=== PATIENT | female | born 1970 | race Two or more races ===

== ENCOUNTER → 2017-09-16 | Outpatient (CLI) | payer OTHER | END | disposition home or self-care (01) | LOC: KCIC MRI 15:55 | DX: G45.9 Transient cerebral ischemic attack, unspecified (principal); H74.8X2 Other specified disorders of left middle ear and mastoid | CPT/HCPCS: 70551 ==

== ENCOUNTER 2017-11-28 09:35 | Emergency (ER) | payer OTHER ==
[~2017-11-28] VITALS: Ht 162.6 cm; Wt 117.9 kg
[2017-11-28 10:02] VITALS: BP 146/74
[2017-11-28] MEDS ORDERED: LISI2.5T PO (10:25)
[2017-11-28] MEDS ORDERED: CLON0.1T PO (10:25)
[2017-11-28] MEDS ORDERED: DILT30TA PO (10:25)
--- NOTE | 2017-11-28 10:47 | PHYS DOC ---
Adult General Chief Complaint Chief Complaint: PSYCH EVALUATION HPI HPI Patient is a 47 year old female who presents with Kimberly for the past 5 days. Patient has a history significant for anxiety and depression with an admission earlier this year at [facility] for the aforementioned diagnosis. Patient has been on multiple combinations of multiple psychiatric medicines including trazodone, Klonopin, Effexor, Cymbalta and Lexapro. Patient states she is now being managed by her primary care physician and his nurse practitioner and is been off all psychiatric medicines for the past 7 weeks. They're starting to slowly try, from my understanding is a single therapy to help her without overmedicating her. Patient states that she's been having trouble sleeping but does not want to take a benzodiazepine but states she's tried everything else so is here for further evaluation and management. Patient does agree to see Dr. Malik tomorrow but just wants something to help relax her today. Patient has no other acute complaints at this time. Review of Systems Review of Systems Constitutional: Denies fever or chills [] Eyes: Denies change in visual acuity, redness, or eye pain [] HENT: Denies nasal congestion or sore throat [] Respiratory: Denies cough or shortness of breath [] Cardiovascular: No additional information not addressed in HPI [] GI: Denies abdominal pain, nausea, vomiting, bloody stools or diarrhea [] : Denies dysuria or hematuria [] Musculoskeletal: Denies back pain or joint pain [] Integument: Denies rash or skin lesions [] Neurologic: Denies headache, focal weakness or sensory changes [] Endocrine: Denies polyuria or polydipsia [] All other systems were reviewed and found to be within normal limits, except as documented in this note. Current Medications Current Medications Current Medications Medications (Trade) Dose Ordered Sig/Yahir Start Time Stop Time Status Last Admin Dose Admin Lorazepam (Ativan) 1 mg 1X ONCE 11/28/17 11:45 11/28/17 11:46 DC Allergies Allergies Allergies Coded Allergies Type Severity Reaction Last Updated Verified clonazepam Adverse Reaction Intermediate 11/28/17 Yes duloxetine Adverse Reaction Intermediate Anxiety 11/28/17 Yes escitalopram Adverse Reaction Intermediate Anxiety 11/28/17 Yes mirtazapine Adverse Reaction Intermediate 11/28/17 Yes trazodone Adverse Reaction Intermediate 11/28/17 Yes venlafaxine Adverse Reaction Intermediate Nausea and Vomiting 11/28/17 Yes Physical Exam Physical Exam Constitutional: Well developed, well nourished, no acute distress, non-toxic appearance. [] HENT: Normocephalic, atraumatic, bilateral external ears normal, oropharynx moist, no oral exudates, nose normal. [] Eyes: PERRLA, EOMI, conjunctiva normal, no discharge. [] Neck: Normal range of motion, no tenderness, supple, no stridor. [] Cardiovascular:Heart rate regular rhythm, no murmur [] Lungs & Thorax: Bilateral breath sounds clear to auscultation [] Abdomen: Bowel sounds normal, soft, no tenderness, no masses, no pulsatile masses. [] Skin: Warm, dry, no erythema, no rash. [] Back: No tenderness, no CVA tenderness. [] Extremities: No tenderness, no cyanosis, no clubbing, ROM intact, no edema. [] Neurologic: Alert and oriented X 3, normal motor function, normal sensory function, no focal deficits noted. [] Psychologic: Affect normal, judgement normal, mood normal. [] Current Patient Data Vital Signs Vital Signs Date Time Temp Pulse Resp B/P (MAP) Pulse Ox O2 Delivery O2 Flow Rate FiO2 11/28/17 10:02 98.5 87 18 146/74 (98) 98 Room Air 98.5 Lab Values Laboratory Tests Test 11/28/17 11:00 11/28/17 11:10 White Blood Count 7.5 x10^3/uL (4.0-11.0) Red Blood Count 4.88 x10^6/uL (3.50-5.40) Hemoglobin 14.5 g/dL (12.0-15.5) Hematocrit 42.0 % (36.0-47.0) Mean Corpuscular Volume 86 fL (79-100) Mean Corpuscular Hemoglobin 30 pg (25-35) Mean Corpuscular Hemoglobin Concent 35 g/dL (31-37) Red Cell Distribution Width 13.5 % (11.5-14.5) Platelet Count 256 x10^3/uL (140-400) Neutrophils (%) (Auto) 72 % (31-73) Lymphocytes (%) (Auto) 19 % (24-48) L Monocytes (%) (Auto) 8 % (0-9) Eosinophils (%) (Auto) 1 % (0-3) Basophils (%) (Auto) 1 % (0-3) Neutrophils # (Auto) 5.4 x10^3uL (1.8-7.7) Lymphocytes # (Auto) 1.4 x10^3/uL (1.0-4.8) Monocytes # (Auto) 0.6 x10^3/uL (0.0-1.1) Eosinophils # (Auto) 0.0 x10^3/uL (0.0-0.7) Basophils # (Auto) 0.0 x10^3/uL (0.0-0.2) Sodium Level 141 mmol/L (136-145) Potassium Level 4.2 mmol/L (3.5-5.1) Chloride Level 100 mmol/L (98-107) Carbon Dioxide Level 28 mmol/L (21-32) Anion Gap 13 (6-14) Blood Urea Nitrogen 8 mg/dL (7-20) Creatinine 0.7 mg/dL (0.6-1.0) Estimated GFR (Cockcroft-Gault) 89.3 BUN/Creatinine Ratio 11 (6-20) Glucose Level 128 mg/dL (70-99) H Calcium Level 9.4 mg/dL (8.5-10.1) Magnesium Level 2.2 mg/dL (1.8-2.4) Total Bilirubin 1.1 mg/dL (0.2-1.0) H Aspartate Amino Transferase (AST) 61 U/L (15-37) H Alanine Aminotransferase (ALT) 119 U/L (14-59) H Alkaline Phosphatase 95 U/L (46-116) Troponin I Quantitative < 0.017 ng/mL (0.000-0.055) Total Protein 7.7 g/dL (6.4-8.2) Albumin 4.1 g/dL (3.4-5.0) Albumin/Globulin Ratio 1.1 (1.0-1.7) Thyroid Stimulating Hormone (TSH) 0.403 uIU/mL (0.358-3.74) Ethyl Alcohol Level < 10 mg/dL (0-10) Urine Collection Type Void Urine Color Yellow Urine Clarity Clear Urine pH 7.5 Urine Specific [place] 1.015 Urine Protein Negative mg/dL (NEG-TRACE) Urine Glucose (UA) Negative mg/dL (NEG) Urine Ketones (Stick) Trace mg/dL (NEG) Urine Blood Negative (NEG) Urine Nitrite Negative (NEG) Urine Bilirubin Negative (NEG) Urine Urobilinogen Dipstick 1.0 mg/dL (0.2 mg/dL) Urine Leukocyte Esterase Negative (NEG) Urine RBC 1-2 /HPF (0-2) Urine WBC 1-4 /HPF (0-4) Urine Squamous Epithelial Cells Mod /LPF Urine Bacteria Few /HPF (0-FEW) Urine Mucus Slight /LPF Urine Opiates Screen Neg (NEG) Urine Methadone Screen Neg (NEG) Urine Barbiturates Neg (NEG) Urine Phencyclidine Screen Neg (NEG) Urine Amphetamine/Methamphetamine Neg (NEG) Urine Benzodiazepines Screen Neg (NEG) Urine Cocaine Screen Neg (NEG) Urine Cannabinoids Screen Neg (NEG) Urine Ethyl Alcohol Neg (NEG) Laboratory Tests 11/28/17 11:00 Laboratory Tests 11/28/17 11:00 EKG EKG [] Radiology/Procedures Radiology/Procedures [] Course & Med Decision Making Course & Med Decision Making Pertinent Labs and Imaging studies reviewed. (See chart for details) [] Dragon Disclaimer Dragon Disclaimer This electronic medical record was generated, in whole or in part, using a voice recognition dictation system. Departure Departure Impression: Primary Impression: Anxiety Additional Impression: Insomnia due to anxiety and fear Disposition: 01 HOME, SELF-CARE Condition: STABLE Referrals: AQUILINO LOPEZ MD (PCP) Additional Instructions: Follow-up with her primary care physician tomorrow for further evaluation and management Scripts Lorazepam (ATIVAN) 1 Mg Tablet 1 MG PO HS, #2 TAB Prov: AIMEE FLORES MD 11/28/17 Problem Qualifiers AIMEE FLORES MD Nov 28, 2017 10:47
[2017-11-28 11:14] LABS: BASO % 1 % (0-3); EOS % 1 % (0-3); HEMOGLOBIN 14.5 g/dL (12.0-15.5); LYMPH # 1.4 x10^3/uL (1.0-4.8); LYMPH % 19 % (24-48); MEAN CORPUSCULAR HEMOGLOBIN 30 pg (25-35); MEAN CORPUSCULAR HGB CONC 35 g/dL (31-37); MEAN CORPUSCULAR VOLUME 86 fL (79-100); MONO # 0.6 x10^3/uL (0.0-1.1); MONO % 8 % (0-9); NEUT # 5.4 x10^3uL (1.8-7.7); NEUT % 72 % (31-73); PLATELET COUNT 256 x10^3/uL (140-400); RED BLOOD COUNT 4.88 x10^6/uL (3.50-5.40); RED CELL DISTRIBUTION WIDTH 13.5 % (11.5-14.5); WHITE BLOOD COUNT 7.5 x10^3/uL (4.0-11.0)
[2017-11-28 11:17] LABS: BILIRUBIN,URINE NEGATIVE (NEG); CLARITY,URINE CLEAR; COLOR,URINE YELLOW; NITRITE,URINE NEGATIVE (NEG); PH,URINE 7.5; PROTEIN,URINE NEGATIVE (NEG-TRACE)
[2017-11-28 11:24] LABS: CALCIUM 9.4 mg/dL (8.5-10.1); CREATININE 0.7 mg/dL (0.6-1.0); GFR 89.3; POTASSIUM 4.2 mmol/L (3.5-5.1)
[2017-11-28 11:25] LABS: AMPHETAMINE/METHAMPHETAMINE NEG (NEG); BARBITURATES NEG (NEG); BENZODIAZEPINES NEG (NEG); CANNABINOIDS NEG (NEG); COCAINE NEG (NEG); METHADONE NEG (NEG); OPIATES NEG (NEG); PHENCYCLIDINE NEG (NEG)
[2017-11-28 11:26] LABS: SQUAMOUS EPITHELIAL CELL,UR MOD /LPF
[2017-11-28 11:27] LABS: BACTERIA,URINE FEW /HPF (0-FEW)
[2017-11-28 11:30] LABS: ALBUMIN 4.1 g/dL (3.4-5.0); ALBUMIN/GLOBULIN RATIO 1.1 (1.0-1.7); MAGNESIUM 2.2 mg/dL (1.8-2.4); TOTAL BILIRUBIN 1.1 mg/dL (0.2-1.0); TOTAL PROTEIN 7.7 g/dL (6.4-8.2)
[2017-11-28] MEDS ORDERED: LORA-434 PO (11:51)
[2017-11-28] MEDS: LORazepam 1 MG TABLET PO ONE ×2 (12:10→12:52)
== END 2017-11-28 12:56 | disposition home or self-care (01) ==
LOC: ER 09:35
DX: F41.9 Anxiety disorder, unspecified (principal); F51.05 Insomnia due to other mental disorder; G47.9 Sleep disorder, unspecified; F32.9 Major depressive disorder, single episode, unspecified; Z88.8 Allergy status to other drugs, medicaments and biological substances
CPT/HCPCS: 36415; 80053; 80307; 81001; 83735; 84443; 84484; 85025; 99284; G0480; G0479

== ENCOUNTER → 2018-02-04 | Outpatient (CLI) | payer OTHER ==
[~2018-02-04] MED LIST: CLON0.1T PO; DILT30TA PO; LISI2.5T PO; LORA-434 PO
--- NOTE | 2018-02-04 17:26 | KCIC ---
Limited abdominal ultrasound History: Hepatic steatosis. Findings: The aorta, inferior vena cava and pancreas are poorly visualized due to large body habitus and overlying bowel gas. No obvious aortic aneurysm but the aorta is ectatic. There is also suboptimal visualization of the liver, which is enlarged measuring 21.2 cm cephalocaudal, and demonstrates coarse echogenicity, compatible with steatosis. There is poor penetration of the liver due to this echogenicity also limiting evaluation. Gallbladder: Surgically removed Bile ducts: Mildly dilated, 7 mm, common bile duct. Right kidney: 11.6 cm length. No evidence of hydronephrosis. Impression: 1. Poor evaluation of the midline structures due to body habitus and overlying bowel gas. 2. Hepatomegaly with hepatic steatosis. Liver is otherwise suboptimally evaluated for the above reasons, as well as due to limited penetration. Consider multiphase CT of the liver for further evaluation as indicated. 3. Mild biliary ductal dilatation, postcholecystectomy. Electronically signed by: Clayton Romero MD (02/04/2018 5:23 PM) [id number]
--- NOTE | 2018-02-04 17:29 | KCIC ---
Thyroid ultrasound HISTORY: Thyroid nodule. Right thyroid: * 4.8 cm x 1.8 cm x 2.4 cm. * Small hypoechoic nodule at the lower pole measures 4 mm without evidence of internal vascularity. Isthmus: * 3 mm Left thyroid: * Measures 5.6 cm x 2.0 cm x 2.6 cm. * Solid complex nodule at the lower pole of the left thyroid measures 2.7 cm, and demonstrates some internal vascularity. IMPRESSION: 1. Solid 2.7 cm vascular nodule at the lower pole of the left thyroid, is indeterminant but findings do raise concern for malignant etiology. 2. Small 4 mm nodule lower pole right thyroid. 3. Borderline thyromegaly. Electronically signed by: Clayton Romero MD (02/04/2018 5:26 PM) [id number]
== END | disposition home or self-care (01) ==
LOC: KCIC US 08:40
PROVIDERS: ATTEND Family Medicine
DX: E04.1 Nontoxic single thyroid nodule (principal); K76.0 Fatty (change of) liver, not elsewhere classified; R16.0 Hepatomegaly, not elsewhere classified
CPT/HCPCS: 76536; 76705

== ENCOUNTER → 2018-02-09 | Outpatient (CLI) | payer OTHER ==
[~2018-02-09] MED LIST changes: +IOHEXOL 300 MG/ML 100ML VIAL. IV ONE
--- NOTE | 2018-02-09 17:00 | KCIC ---
Examination: CT of the chest without and with IV contrast HISTORY: History of lung nodule on outside CT COMPARISON: None available Technique: Axial CT images of the chest were performed without and with IV contrast. Coronal and sagittal reformats are performed Exposure: One or more of the following individualized dose reduction techniques were utilized for this examination: 1. Automated exposure control 2. Adjustment of the mA and/or kV according to patient size 3. Use of iterative reconstruction technique FINDINGS: The visualized thyroid gland grossly appears unremarkable. The central airways are patent. No radiologically significant mediastinal lymphadenopathy is identified. There is a 7 mm nodule identified in the right upper lobe of the lung. Minimal bibasilar lung atelectasis. Diffuse decreased attenuation noted throughout the liver likely steatosis. The visualized spleen, adrenals grossly appears unremarkable. IMPRESSION: 1. A 7 mm nodule identified in the right upper lobe of the lung. Follow-up per Fleischner Society guidelines with a follow-up CT in 6-12 months. 2. Hepatic steatosis. Electronically signed by: Kristopher Moore MD (02/09/2018 4:56 PM) [facility]
== END | disposition home or self-care (01) ==
LOC: KCIC CT 11:25
PROVIDERS: ATTEND Family Medicine
DX: K76.0 Fatty (change of) liver, not elsewhere classified (principal); J98.11 Atelectasis; I10 Essential (primary) hypertension; R91.1 Solitary pulmonary nodule; E11.9 Type 2 diabetes mellitus without complications; Z68.35 Body mass index [BMI] 35.0-35.9, adult
CPT/HCPCS: 71270; Q9967